=== PATIENT | male | born 1965 | race Caucasian/White ===

== ENCOUNTER 2017-04-13 05:30 | Day surgery (SDC) | payer OTHER ==
[2017-04-13] VITALS (12 sets, daily range): BP systolic 159–200; BP diastolic 76–96; PULSE 58–68; RESP 18–35; Ht 185.4 cm; Wt 165.9 kg
[~2017-04-13] VITALS: Ht 185.4 cm; Wt 165.9 kg
[~2017-04-13 05:30] MED LIST: BACITRACIN/POLYMYXIN 0.9 GM OINT TOP ONE
[2017-04-13] MEDS ORDERED: HYD25 PO (05:46)
[2017-04-13] MEDS ORDERED: CHOL5000 PO (05:46)
[2017-04-13] MEDS ORDERED: ATOR40TA68 PO (05:46)
[2017-04-13] MEDS ORDERED: ATEN50TA PO (05:46)
[2017-04-13] MEDS ORDERED: ROCURONIUM 50 MG INJ ONE (06:28)
[2017-04-13] MEDS ORDERED: GLYCOPYRROLATE 0.4 MG INJ ONE (06:28)
[2017-04-13] MEDS ORDERED: LIDOCAINE 2% (SDV) 5 ML INJ ONE (06:28)
[2017-04-13] MEDS ORDERED: NEOSTIGMINE 3 MG/3 ML SYRINGE ONE (06:28)
[2017-04-13] MEDS ORDERED: PROPOFOL 20 ML ONE (06:28)
[2017-04-13] MEDS ORDERED: MIDAZOLAM 1 MG/ML 2 ML INJ ONE (06:29)
[2017-04-13] MEDS ORDERED: FENTAnyl 50 MCG/ML VIAL ONE (06:29)
[2017-04-13] MEDS ORDERED: DIPHENHYDRAMINE 50 MG INJ IV PRN (06:30)
[2017-04-13] MEDS ORDERED: OXYCODONE/ACETAMINOPHEN (5/325) TAB PO PRN ×2 (06:30)
[2017-04-13] MEDS ORDERED: MEPERIDINE 25 MG INJ IV PRN (06:30)
[2017-04-13] MEDS ORDERED: LABETALOL HCL 20MG INJ IV PRN (06:30)
[2017-04-13] MEDS ORDERED: MIDAZOLAM 1 MG/ML 2 ML INJ IV PRN (06:30)
[2017-04-13] MEDS ORDERED: hydrALAzine 20 MG INJ IV PRN (06:30)
[2017-04-13] MEDS ORDERED: morphine (1 MG/ML) 10ML SYRINGE IV PRN ×3 (06:30)
[2017-04-13] MEDS ORDERED: ATROPINE 1 MG/10 ML SYRINGE IV PRN (06:30)
[2017-04-13] MEDS ORDERED: ONDANSETRON 4 MG INJ IV PRN ×2 (06:30→09:00)
[2017-04-13] MEDS ORDERED: EPHEDrine SULFATE 50 MG/5 ML SYG IV PRN (06:30)
[2017-04-13] MEDS ORDERED: FENTAnyl 50 MCG/ML VIAL IV PRN ×2 (06:30)
[2017-04-13] MEDS ORDERED: HYDROmorphONE (0.2 MG/ML) 10ML SYG IV PRN ×3 (06:30)
[2017-04-13] MEDS ORDERED: KETAMINE 500 MG INJ ONE (06:35)
[2017-04-13] MEDS ORDERED: LIDOCAINE 0.5%/EPI (MDV) 50 ML INJ ONE (06:47)
[2017-04-13] MEDS ORDERED: BUPIVACAINE 0.5% (SDV) 30 ML INJ ONE (06:47)
[2017-04-13] MEDS ORDERED: BACITRACIN 0.9 GM OINT ONE (06:48)
--- NOTE | 2017-04-13 07:22 | HPN ---
Date/Time of Note Date/Time of Note DATE: 04/13/17 TIME: 07:22 Interval H&P Admission Note Pt. seen H&P reviewed: No system changes ESTEVAN RODRIGUEZ MD April 13, 2017 07:22
[2017-04-13] MEDS ORDERED: hydrALAzine 20 MG INJ ONE (07:43)
[2017-04-13] MEDS ORDERED: morphine 2 MG INJ IV PRN (09:00)
[2017-04-13] MEDS ORDERED: HYDROCODONE/APAP (5/325) TAB PO PRN (09:00)
--- NOTE | 2017-04-13 09:11 | OPR ---
Date/Time of Note Date/Time of Note DATE: 04/13/17 TIME: 09:02 Operative Report Free Text/Dictation Plastic Surgery Operative Report Preoperative diagnosis: left cheek basal cell Postoperative diagnosis: same Procedure: excision of left cheek basal cell and flap closure Surgeon:shon Jack.:n/a Anesthesia:gen EBL:min IV fluids:per flow sheet Findings:n/a Complications:none Dispo:home Indications for procedure: 51-year-old man presents today with a left cheek basal cell. We will excise it and perform a flap to close it. The risks, benefits, alternatives of performing this procedure were discussed with the patient including the risks of bleeding, infection, wound healing problems, partial or total flap loss, need for reexcision, visible scarring, and the patient states that he understands these risks and would like to proceed with the procedure. All questions were answered, no guarantees were given with regards to the outcome of this procedure. Description of procedure: The patient was brought to the operating room where sedation was induced. A total of 15cc of 0.5% lidocaine with 1: 200,000 epinephrine was injected into the base of the lesion and the inferior portion where the flap was planned. Next, the patient was prepped and draped the usual sterile fashion. First, the 15 blade was used to incise around the perimeter of the lesion. The 15 blade was then used to excise the lesion from the deep subcutaneous tissue. A short stitch was placed superiorly long stitch was placed lateral. This was sent for pathology. Hemostasis was achieved with electrocautery. Pathology returned negative. Final specimen size was 2.3 cm. The tissues were inspected. They would not close in a parallel scar plane with primary closure. Therefore, an inferiorly based rotation advancement flap was planned. This was marked extending from the lateral border of the wound down to the tragus and along the rim of the ear. This incision was made with a 15 blade. The flap was elevated with electrocautery. Once an adequate amount of flap had been elevated, the flap was rotated and advanced superiorly into the defect. It sat in place without undue tension. The borders of the wound were undermined further with the scissors. A final round of hemostasis was carried out with electrocautery. The flap was trimmed to fit. Finally, it was sutured in place with 5-0 Vicryl suture and 5-0 nylon suture. Total flap size was 4 x 4 cm. Patient tolerated procedure well, there were no complications, follow-up information and wound care instructions were given ESTEVAN RODRIGUEZ MD April 13, 2017 09:11
== END 2017-04-13 10:00 | disposition home or self-care (01) ==
LOC: SDS 05:30
PROVIDERS: ATTEND Surgery Plastic and Reconstructive Surgery
DX: C44.319 Basal cell carcinoma of skin of other parts of face (principal); I10 Essential (primary) hypertension; E78.5 Hyperlipidemia, unspecified; E66.01 Morbid (severe) obesity due to excess calories; Z68.42 Body mass index [BMI] 45.0-49.9, adult
CPT/HCPCS: 14040; 88305; 88331; J0360; J2250; J3010; Z7512; Z7610; J2710